=== PATIENT | female | born 1965 | race Caucasian/White ===

== ENCOUNTER 2017-03-05 08:57 | Day surgery (SDC) | payer BC, OTHER ==
[~2017-03-05] VITALS: Ht 162.6 cm; Wt 66.3 kg
[2017-03-05 09:43] VITALS: Ht 162.6 cm; Wt 66.3 kg
[2017-03-05] MEDS ORDERED: AMLO2.5T78 PO (09:50)
[2017-03-05] MEDS ORDERED: SITA1TAB5 PO (09:53)
[2017-03-05] MEDS ORDERED: CHLO25TA13 PO (09:53)
[2017-03-05] MEDS ORDERED: LISI20TA11 PO (09:53)
--- NOTE | 2017-03-05 11:23 | OPPN ---
Date/Time of Note Date/Time of Note DATE: 03/05/17 TIME: 11:16 Operative Report Preoperative Diagnosis Screening colonoscopy Postoperative Diagnosis 2 small right colon polyps were removed. Internal hemorrhoids Operation/Procedure Performed Colonoscopy and biopsy Estimated blood loss: none Specimens Biopsy of colon polyp Complications: None HENNA POST MD Mar 05, 2017 11:23
[2017-03-05] MEDS ORDERED: FENTAnyl 50 MCG/ML VIAL ONE (11:26)
[2017-03-05] MEDS ORDERED: MIDAZOLAM 1 MG/ML 2 ML INJ ONE ×2 (11:26)
--- NOTE | 2017-03-05 12:31 | GILP ---
DATE OF PROCEDURE: 03/05/2017 PROCEDURE PERFORMED: Colonoscopy and biopsy. PREOPERATIVE DIAGNOSIS: Screening colonoscopy. POSTOPERATIVE DIAGNOSES: 1. Colonoscopy all the way to the cecum. 2. Two small right colon polyps were removed using the biopsy forceps. 3. Internal hemorrhoids. INDICATION: Ms. Palak Holly is a 52-year-old female patient who was noted to have positive occult blood in stool. She needed a screening colonoscopy. The procedure and possible complications were well explained to the patient. She understood and consented to the procedure. DESCRIPTION OF PROCEDURE: Under influence of fentanyl and Versed, the colonoscope was carefully introduced in the rectum and under direct vision it was advanced all the way to the cecum. FINDINGS: The patient had 2 small right colon polyps and they were removed using the biopsy forceps. She had internal hemorrhoids. She tolerated the procedure very well. There was no complication from the procedure. At the end of the procedure, she was awake with stable vital signs and she was discharged home in the care of her family. IMPRESSION: Please see postop diagnoses. PLAN: Next screening colonoscopy in 10 years. Dictated By: MD PEDRO Campuzano/diamond/huy /Document#: [id number] CC: Zuhair Cota MD;*End*
== END 2017-03-05 14:43 | disposition home or self-care (01) ==
LOC: GIL 08:57
PROVIDERS: ATTEND Internal Medicine Gastroenterology
DX: Z12.11 Encounter for screening for malignant neoplasm of colon (principal); K63.5 Polyp of colon; K64.8 Other hemorrhoids; I10 Essential (primary) hypertension; E11.9 Type 2 diabetes mellitus without complications
CPT/HCPCS: 45380; 82962; 88305; J2250; J3010

== ENCOUNTER 2017-04-03 08:58 | Day surgery (SDC) | payer OTHER ==
[2017-04-02 12:29] VITALS: Ht 154.9 cm; Wt 66.8 kg
[2017-04-03] VITALS (11 sets, daily range): BP systolic 99–136; BP diastolic 56–70; PULSE 62–92; RESP 16–20
[~2017-04-03] VITALS: Ht 154.9 cm; Wt 66.8 kg
[~2017-04-03 08:58] MED LIST: AMLO2.5T78 PO; CEFAZOLIN 2 GM/50 ML (PMX) 50 ML IVPB ONE; CHLO25TA13 PO; LISI20TA11 PO; SITA1TAB5 PO; SOD CHLORIDE 0.9% 1,000 ML IV SCH
[2017-04-03] MEDS ORDERED: ATOR10TA65 PO (09:57)
--- NOTE | 2017-04-03 11:37 | RADRPT ---
PROCEDURE: XR Chest. CLINICAL INDICATION: Thigh mass TECHNIQUE: Single frontal view of the chest was obtained COMPARISON: None FINDINGS: No pleural effusion or pneumothorax. No consolidation. Normal cardiomediastinal silhouette. No acute osseous abnormality. IMPRESSION: No acute cardiopulmonary disease. RPTAT: EE Physician Emily Date Time Electronically viewed and signed by Guillermina Roman Physician on 04/03/2017 11:36 /
[2017-04-03] MEDS ORDERED: BUPIVACAINE 0.25% (MPF) 30 ML INJ ONE (12:57)
[2017-04-03] MEDS ORDERED: BUPIVACAINE 0.5% (SDV) 30 ML INJ ONE (12:57)
[2017-04-03] MEDS ORDERED: LIDOCAINE 2%/EPI 30 ML INJ ONE (12:57)
[2017-04-03] MEDS ORDERED: METOCLOPRAMIDE 10 MG INJ IV PRN (13:00)
[2017-04-03] MEDS ORDERED: HYDROmorphONE (0.2 MG/ML) 10ML SYG IV PRN ×3 (13:00)
[2017-04-03] MEDS ORDERED: hydrALAzine 20 MG INJ IV PRN (13:00)
[2017-04-03] MEDS ORDERED: MEPERIDINE 25 MG INJ IV PRN (13:00)
[2017-04-03] MEDS ORDERED: FENTAnyl 50 MCG/ML VIAL IV PRN ×3 (13:00)
[2017-04-03] MEDS ORDERED: EPHEDrine SULFATE 50 MG/5 ML SYG IV PRN (13:00)
[2017-04-03] MEDS ORDERED: LABETALOL HCL 20MG INJ IV PRN (13:00)
[2017-04-03] MEDS ORDERED: ONDANSETRON 4 MG INJ IV PRN (13:00)
[2017-04-03] MEDS ORDERED: OXYCODONE/ACETAMINOPHEN (5/325) TAB PO PRN ×2 (13:00)
[2017-04-03] MEDS ORDERED: DIPHENHYDRAMINE 50 MG INJ IV PRN (13:00)
[2017-04-03] MEDS ORDERED: MIDAZOLAM 1 MG/ML 2 ML INJ IV PRN (13:00)
[2017-04-03] MEDS ORDERED: PROPOFOL 20 ML ONE (13:05)
[2017-04-03] MEDS ORDERED: LIDOCAINE 2% (SDV) 5 ML INJ ONE (13:05)
[2017-04-03] MEDS ORDERED: ONDANSETRON 4 MG INJ ONE (13:05)
[2017-04-03] MEDS ORDERED: METOCLOPRAMIDE 10 MG INJ ONE (13:05)
[2017-04-03] MEDS ORDERED: MEPERIDINE 100 MG INJ ONE (13:05)
[2017-04-03] MEDS ORDERED: CEFAZOLIN 1 GM INJ ONE (13:05)
--- NOTE | 2017-04-03 13:48 | OPR ---
Date/Time of Note Date/Time of Note DATE: 04/03/17 TIME: 13:46 Operative Report Procedure Date: Apr 03, 2017 Preoperative Diagnosis left leg mass Postoperative Diagnosis large left leg mass Operation Performed 1. excision of left leg mass 12 cm mass 10 cm incision 2. localized adjacent tissue transfer with the use of skin flaps 30 sq cm defect 3. therapeutic injection of subcutaneous marcaince cpt code [id number] Surgeon: Elke SCOTT Anesthesia Type: general Estimated Blood Loss: 0 - 10 ml's Specimens left leg mass Grafts/Implants: none Complications: no Indications This is a 52-year-old female with a large left leg mass. She required surgical excision. Risks alternatives benefits and percent were discussed patient. Patient expresses understanding consents to the operation. Procedure Description Patient is taken to the OR and prepped and draped in usual sterile fashion. Surgical timeout is performed. IV antibiotics were given. Transverse incision is made over the left leg mass with a 10 blade. Dissection cautery was carried onto the mass. The mass was circumferentially excised en bloc all the way down to the fascia. Hemostasis is established with cautery. Due to very large tissue defect localized adjacent tissue transfer with use of skin flaps was performed. Multilayer closure of the superior and inferior flaps of interrupted Vicryl and skin pavithra for the skin. Therapeutic subcutaneous Marcaine is injected throughout the incision site. Dry dressings were applied. Elke SCOTT Apr 03, 2017 13:48
--- NOTE | 2017-04-03 15:34 | RADRPT ---
Vent Rate: 70 bpm RR Interval: 0 msec SD Interval: 178 msec QRS Duration: 74 msec QT Interval: 388 msec QTC Interval: 419 msec P-R-T Acme: 64 - 41 - 48 degrees Normal sinus rhythm Normal ECG Electronically Signed By: Sabino Noguera [id number]
== END 2017-04-03 15:12 | disposition home or self-care (01) ==
LOC: SDS 08:58
PROVIDERS: ATTEND Surgery
DX: D17.24 Benign lipomatous neoplasm of skin and subcutaneous tissue of left leg (principal); E11.9 Type 2 diabetes mellitus without complications; I10 Essential (primary) hypertension; E78.5 Hyperlipidemia, unspecified
CPT/HCPCS: 14021; 71010; 82962; 88307; 93005; J0690; J2175; J2405; J2765